=== PATIENT | male | born 1990 | race Caucasian/White ===

== ENCOUNTER 2019-12-10 20:03 | Emergency (ER) | payer BC ==
[~2019-12-10] VITALS: Ht 185.4 cm; Wt 97.7 kg
[2019-12-10 20:15] VITALS: BP 138/83; TEMP 98.9
[2019-12-10] MEDS ORDERED: RT ADVAIR 228 DISKUS IH (20:17)
[2019-12-10 21:38] VITALS: PULSE 72
== END 2019-12-10 21:43 | disposition home or self-care (01) ==
LOC: COL.ER 20:03
DX: S61.012A Laceration without foreign body of left thumb without damage to nail, initial encounter (principal); J45.909 Unspecified asthma, uncomplicated; Z23 Encounter for immunization; Z79.51 Long term (current) use of inhaled steroids; W26.0XXA Contact with knife, initial encounter; Y92.009 Unspecified place in unspecified non-institutional (private) residence as the place of occurrence of the external cause

== ENCOUNTER → 2020-01-11 | Outpatient (CLI) | payer BC ==
[~2020-01-11] MED LIST: RT ADVAIR 228 DISKUS IH
== END ==
LOC: COL.RAD 09:54
DX: I86.1 Scrotal varices (principal); N50.3 Cyst of epididymis

== ENCOUNTER 2020-09-14 16:10 | Emergency (ER) | payer BC ==
[~2020-09-14] VITALS: Ht 185.4 cm; Wt 97.7 kg
[2020-09-14 18:16] LABS: STREP SCREEN NEGATIVE
[2020-09-14] MEDS ORDERED: NORCO 325 MG-51 TAB PO (19:04)
[2020-09-14 19:32] VITALS: BP 131/83; PULSE 111; TEMP 99
[2020-09-15] MEDS ORDERED: PROVENTIL0.09 MG/A1 IH (11:28)
== END 2020-09-14 19:41 | disposition home or self-care (01) ==
LOC: COL.ER 16:10
PROVIDERS: Nurse Practitioner Primary Care
DX: J03.90 Acute tonsillitis, unspecified (principal); U07.1 COVID-19; J45.909 Unspecified asthma, uncomplicated
CPT/HCPCS: J0696; J1100; J1885; J7030; Q9967

== ENCOUNTER 2020-09-18 09:00 | Outpatient (RCR) | payer BC ==
[2020-09-15 11:40] VITALS: BP 133/69; PULSE 113; TEMP 97.9
[2020-09-16 11:30] VITALS: BP 119/72; PULSE 96; TEMP 99
[2020-09-17 10:07] VITALS: BP 126/67; PULSE 85; TEMP 98.1
[~2020-09-18] VITALS: Ht 185.4 cm; Wt 99.1 kg
[~2020-09-18 09:00] MED LIST changes: +NORCO 325 MG-51 TAB PO; +PROVENTIL0.09 MG/A1 IH
[2020-09-18 09:03] VITALS: BP 121/74; PULSE 88; TEMP 98.6
== END 2020-09-18 10:29 | disposition home or self-care (01) ==
LOC: EUO 09:00
DX: Z79.899 Other long term (current) drug therapy (principal)
CPT/HCPCS: J0696; J1100

== ENCOUNTER 2020-10-28 10:19 | Emergency (ER) | payer BC ==
[~2020-10-28] VITALS: Ht 185.4 cm; Wt 97.7 kg
[~2020-10-28 10:19] MED LIST changes: -AMOXICILLIN 8751 TAB PO; -ELIQUIS 5MG PO; -ZITHROMAX Z PA250 MG PO
[2020-10-28 11:33] LABS: MEAN CELL VOLUME 83 fl (80.0-100.0); MEAN CORPUSCULAR HEMOGLOBIN 28 pg (27.0-31.0); MEAN CORPUSCULAR HGB CONC 34 g/dl (33.0-37.0); MEAN PLATELET VOLUME 9.8 fl (7.4-10.4); PLATELET COUNT 299 K/mm3 (130-400); RED BLOOD COUNT 4.25 M/mm3 (4.20-5.60); REDCELL DISTRIBUTION WIDTH-CV 12.9 % (11.5-14.5)
[2020-10-28 11:34] LABS: HEMATOCRIT 35.1 % (42.0-52.0)
[2020-10-28 11:42] LABS: ALANINE AMINOTRANSFERASE 96 U/L (4-49); ALBUMIN 3.1 gm/dL (3.5-5.0); ALKALINE PHOSPHATASE 98 U/L (50-136); ANION GAP 6 mmol/L (7-16); AST,SGOT 76 U/L (15-37); BILIRUBIN,TOTAL 0.8 mg/dL (0.0-1.0); BLOOD UREA NITROGEN 7 mg/dL (9-20); CALCIUM 8.2 mg/dL (8.4-10.2); CARBON DIOXIDE 26 mmol/L (22-30); CHLORIDE 104 mmol/L (98-107); CREATININE, serum 0.93 (0.66-1.25); GLUCOSE 90 mg/dL (74-106); LIPASE 138 U/L (23-300); POTASSIUM 3.9 mmol/L (3.4-5.0); SODIUM 135 mmol/L (137-145); TOTAL PROTEIN 6.3 gm/dL (6.4-8.2)
[2020-10-28 11:57] LABS: COLLECTION METHOD CLEAN CATCH
[2020-10-28 12:11] LABS: BAND 5 % (0-10); NEUTROPHILS 35 % (42.0-75.2); PLATELET ESTIMATE NORMAL (NORMAL)
[2020-10-28 12:12] LABS: LYMPHOCYTE 50 % (20.0-51.0); TROPONIN-I < 0.012 ng/mL (0.000-0.035)
[2020-10-28 12:18] LABS: MUCOUS Present /lpf; PH 6 (5-8); SQUAMOUS EPITHELIAL None Seen /hpf; URINE APPEARANCE Clear; URINE BACTERIA None Seen /hpf; URINE BILIRUBIN Negative (NEGATIVE); URINE BLOOD Negative (NEGATIVE); URINE COLOR Yellow; URINE GLUCOSE Negative (NEGATIVE); URINE KETONE Negative (NEGATIVE); URINE LEUKOCYTE ESTERASE Negative (NEGATIVE); URINE NITRATE Negative (NEGATIVE); URINE PROTEIN(semi-quant) Negative (NEGATIVE); URINE RBC 0-2 /hpf
[2020-10-28] MEDS ORDERED: ZITHROMAX Z PA250 MG PO (13:27)
[2020-10-28] MEDS ORDERED: AMOXICILLIN 8751 TAB PO (13:27)
[2020-10-28] MEDS ORDERED: ELIQUIS 5MG PO (13:29)
[2020-10-28 13:48] VITALS: BP 119/64; PULSE 90; TEMP 98.8
[2020-10-29 08:16] LABS: PATHOLOGY DIFF REVIEW OK
== END 2020-10-28 13:48 | disposition home or self-care (01) ==
LOC: COL.ER 10:19
PROVIDERS: Emergency Medicine
DX: J03.90 Acute tonsillitis, unspecified (principal); Z86.16 Personal history of COVID-19
CPT/HCPCS: J0456; J0696; J2405; J7030; J7050

== ENCOUNTER → 2020-10-28 | Outpatient (CLI) | payer BC ==
[~2020-10-28] MED LIST changes: +AMOXICILLIN 8751 TAB PO; +ELIQUIS 5MG PO; +ZITHROMAX Z PA250 MG PO
== END ==
LOC: COL.RAD 09:44
DX: J98.11 Atelectasis (principal); J90 Pleural effusion, not elsewhere classified; R91.1 Solitary pulmonary nodule
CPT/HCPCS: Q9967